=== PATIENT | male | born 1975 | race Hispanic/Latino ===

== ENCOUNTER → 2019-04-17 | Outpatient (CLI) | payer BC ==
--- NOTE | 2019-04-17 15:40 | Diagnostic Imaging Report ---
CT of the abdomen and pelvis History: Abnormal level of serum enzymes Comparison: None available. Technique: Multidetector CT scanning of the abdomen and pelvis was performed from the level of the lung bases to the inferior pubic ramus without IV contrast and with oral contrast. DOSE REDUCTION: The examination was performed according to departmental dose-optimization program which includes automated exposure control, adjustment of the mA and/or kV according to patient size and/or use of iterative reconstruction technique. Discussion: The lung bases demonstrate dependent atelectasis. A 5 mm, nodule is seen in the right middle lobe on axial image 5. The liver has a nodular contour which can be seen in cirrhosis. No focal hepatic lesions are identified on this noncontrast examination. The gallbladder is surgically absent. There is no intrahepatic or extrahepatic biliary dilatation. The spleen is within normal limits. The bilateral adrenal glands are unremarkable. The pancreas is within normal limits. There is no pancreatic ductal dilatation. The kidneys are normal in size. There are postsurgical changes of the right kidney consistent with partial nephrectomy. No hydroureteronephrosis is present bilaterally. No perinephric fluid collections are identified. There are no renal calculi. The stomach, small, and large bowel are nondistended. There is no evidence of obstruction. No bowel wall thickening is appreciated. The appendix is normal in caliber. There is no free intraperitoneal air or ascites. The abdominal aorta is of normal course and caliber. No enlarged abdominal or retroperitoneal lymph nodes are identified. The urinary bladder is within normal limits. The prostate is not enlarged. No acute osseous abnormalities. IMPRESSION: 1. Nodular contour of the liver which can be seen in cirrhosis. No focal hepatic lesions identified on this noncontrast examination. 2. 5 mm right middle lobe pulmonary nodule. Recommend dedicated CT of the chest CT exclude other nodules not imaged on this examination. 3. Status post partial right nephrectomy. No suspicious renal parenchymal lesions identified on this noncontrast examination. Signed by: Guillermo Ramirez MD on 04/17/2019 3:37 PM
== END ==
LOC: CT 13:24
PROVIDERS: ATTEND Internal Medicine
DX: R74.8 Abnormal levels of other serum enzymes (principal); R19.03 Right lower quadrant abdominal swelling, mass and lump
CPT/HCPCS: 74176

== ENCOUNTER → 2019-05-05 | Outpatient (CLI) | payer BC ==
--- NOTE | 2019-05-05 08:55 | Diagnostic Imaging Report ---
EXAM: CT Chest WITHOUT intravenous contrast 05/05/2019 7:42 AM INDICATION: Pulmonary nodule COMPARISON: CT abdomen pelvis of 04/17/2019 TECHNIQUE: Chest was scanned utilizing a multidetector helical scanner from the lung apex through the level of the adrenal glands without administration of IV contrast. Coronal and sagittal reformations were obtained. Routine protocol was performed. IV CONTRAST: None RADIATION DOSE: Total DLP: 511.0mGy*cm. Dose modulation, iterative reconstruction, and/or weight based adjustment of the mA/kV was utilized to reduce the radiation dose to as low as reasonably achievable. COMPLICATIONS: None FINDINGS: LINES/ TUBES: None. LUNGS AND AIRWAYS: The central airways are patent. No focal consolidation. No pulmonary edema. 5 mm left upper lobe calcified granuloma. 3 mm left upper lobe pulmonary nodule (series 2 image 45). 3 mm left lower lobe pulmonary nodule (series 2 image 83). 4 mm right middle lobe pulmonary nodule (series 2 image 76). PLEURA: The pleural spaces are clear. HEART AND MEDIASTINUM: The thyroid gland is normal. No supraclavicular, mediastinal, or hilar lymphadenopathy. The heart is not enlarged. No pericardial effusion. No substantial atherosclerotic calcifications. The main pulmonary artery is not enlarged. UPPER ABDOMEN: Limited noncontrast images of the upper abdomen demonstrate no focal abnormality of the partially visualized liver, spleen, pancreas, adrenals, or upper most kidneys. Status post cholecystectomy. BONES: No acute osseous injury. T6 vertebral body sclerotic lesion likely represents a bone island. SOFT TISSUES: Unremarkable. IMPRESSION: No acute cardiopulmonary process. Bilateral pulmonary nodules measure up to 4 mm. In a low risk patient, no routine follow-up is necessary. In a high-risk patient, CT chest is optional at 12 months. If stable at 12 months, no further follow-up is needed. Signed by: Sahil Jauregui MD on 05/05/2019 8:52 AM
== END ==
LOC: CT 07:33
PROVIDERS: ATTEND Internal Medicine
DX: R91.1 Solitary pulmonary nodule (principal)
CPT/HCPCS: 71250

== ENCOUNTER → 2020-07-05 | Outpatient (CLI) | payer BC | LOC: CT 07:51 | PROVIDERS: ATTEND Internal Medicine | DX: R91.1 Solitary pulmonary nodule (principal) | CPT/HCPCS: 71250 ==

== ENCOUNTER → 2020-09-14 | Outpatient (CLI) | payer BC | LOC: RAD 15:58 | PROVIDERS: ATTEND Internal Medicine | DX: M70.52 Other bursitis of knee, left knee (principal) ==

== ENCOUNTER → 2021-06-21 | Outpatient (CLI) | payer BC | LOC: RAD 15:35 | PROVIDERS: ATTEND Internal Medicine | DX: J32.0 Chronic maxillary sinusitis (principal); R91.1 Solitary pulmonary nodule | CPT/HCPCS: 70220; 71046 ==